=== PATIENT | male | born 2000 | race Two or more races ===

== ENCOUNTER 2021-07-16 10:32 | Outpatient (CLI) | payer OTHER ==
[~2021-07-16 10:32] MED LIST: MUCINEX100 MG/5 M; SINGULAIR4 MG PO
== END 2021-07-16 10:33 | disposition home or self-care (01) ==
LOC: LAB 10:32
PROVIDERS: ATTEND Internal Medicine Cardiovascular Disease
DX: R73.01 Impaired fasting glucose (principal); E78.2 Mixed hyperlipidemia; E55.9 Vitamin D deficiency, unspecified

== ENCOUNTER 2021-08-16 18:00 | Emergency (ER) | payer OTHER ==
[~2021-08-16] VITALS: Ht 172.7 cm; Wt 72.6 kg
[2021-08-16] MEDS ORDERED: MYORISAN40 MG (18:15)
[2021-08-16] MEDS ORDERED: DICLOFENAC SODI75 MG PO (19:26)
[2021-08-16] MEDS ORDERED: ANALPRAM HC 2.530 GM RECTAL (19:26)
== END 2021-08-16 19:38 | disposition home or self-care (01) ==
LOC: ER 18:00
DX: K64.8 Other hemorrhoids (principal)

== ENCOUNTER → 2021-09-25 10:08 | Outpatient (CLI) | payer OTHER ==
[~2021-09-25 10:08] MED LIST changes: +ANALPRAM HC 2.530 GM RECTAL; +DICLOFENAC SODI75 MG PO; +MYORISAN40 MG
== END | disposition home or self-care (01) ==
LOC: LAB 10:08
PROVIDERS: ATTEND Colon & Rectal Surgery
DX: K62.5 Hemorrhage of anus and rectum (principal); K60.3 Anal fistula; Z11.59 Encounter for screening for other viral diseases

== ENCOUNTER 2021-10-24 11:53 | Outpatient (CLI) | payer OTHER | END 2021-10-24 11:55 | disposition home or self-care (01) | LOC: LAB 11:53 | PROVIDERS: ATTEND Colon & Rectal Surgery | DX: K60.3 Anal fistula (principal) ==